=== PATIENT | male | born 1995 | race Caucasian/White ===

== ENCOUNTER 2020-12-31 21:22 | Emergency (ER) | payer OTHER, SELFPAY ==
--- NOTE | ~2020-12-31 | XR_ITS ---
EXAMINATION: XR chest 1V portable EXAM DATE: 12/31/2020 21:43 INDICATION: Cough, vomiting and anxiety. TECHNIQUE: Frontal and lateral projections of the chest obtained and reviewed. There is no prior cynthia dy for comparison. FINDINGS: The lungs are clear. There are no pleural effusions. The cardiomediastinal silhouette is within normal limits. There is no pneumothorax suspected. The bones and soft tissues are unremarkab le. IMPRESSION: No acute cardiopulmonary findings. Reviewed, dictated and finalized at location A.
[2020-12-31 21:27] VITALS: BP 150/92; PULSE 120; RESP 17; TEMP 37.2; O2SAT 98
--- NOTE | 2020-12-31 21:34 | PC.NURSE ---
Patient frequently stating I just don't like the sensations I am feeling. Its just very sensitive.
--- NOTE | 2020-12-31 21:35 | ECG_ITS ---
Measurements Intervals Lyman Rate: 107 P: 42 CA: 132 QRS: 29 QRSD: 95 T: 37 QT: 343 QTc: 459 Interpretive Statements SINUS TACHYCARDIA BASELINE ARTIFACT- I, II, III, AVR, AVL, AVF, V1-V6 ABNORMAL ECG Electronically Signed On 01-01-2021 6:51:43 CDT by Merrill Ulrich D.O.
--- NOTE | 2020-12-31 21:49 | ED.GENADULT ---
HPI - General Adult General Chief complaint: Unspecified <Yaz Ortega MD - Last Filed: 01/01/21 02:22> Stated complaint: awake 48 hours, anxiety <Yaz Ortega MD - Last Filed: 01/01/21 02:22> Time Seen by Provider: 12/31/20 21:24 <Yaz Ortega MD - Last Filed: 01/01/21 02:22> Source: patient and RN notes reviewed <Yaz Ortega MD - Last Filed: 01/01/21 02:22> Mode of arrival: EMS <Yaz Ortega MD - Last Filed: 01/01/21 02:22> Limitations: no limitations <Yaz Ortega MD - Last Filed: 01/01/21 02:22> History of Present Illness HPI narrative: This is a 25 year old male with history of anxiety, depression, polysubstance abuse who presents for anxiety, panic attack. EMS states patient has been binging on methamphetamine over the past severe days. He has been drinking alcohol in order to self medicate for his anxiety now. He states over the past 36 hours he has been drinking a bottle of dora. He is states he is paranoid and he states he does not want to be touched. He also states he has been suicidal for 3 weeks but there is no plan. He reports nausea, vomiting. He denies chest pain but he states his chest feels funny. He is also complaining about his hands cramping and tingling. <Yaz Ortega MD - Last Filed: 01/01/21 02:22> Related Data Allergies/adverse reactions: Allergies Allergy/AdvReac Type Severity Reaction Status Date / Time quetiapine [From Seroquel] Allergy Other Verified 12/31/20 21:33 trazodone Allergy Other Verified 12/31/20 21:33 diphenhydramine AdvReac Other Verified 12/31/20 21:33 [From Benadryl] <Yaz Ortega MD - Last Filed: 01/01/21 02:22> Review of Systems Review of Systems: All systems reviewed & are unremarkable except as noted in HPI and below <Yaz Ortega MD - Last Filed: 01/01/21 02:22> [facility] Past Medical History Medical History: Medical History (Updated 01/01/21 @ 02:22 by Yaz Ortega MD) Anxiety Depression Polysubstance abuse <Yaz Ortega MD - Last Filed: 01/01/21 02:22> Surgical History Surgical History: Surgical History (Updated 01/01/21 @ 02:16 by Yaz Ortega MD) No pertinent past surgical history <Yaz Ortega MD - Last Filed: 01/01/21 02:22> Social History Social History: Social History (Updated 01/01/21 @ 02:22 by Yaz Ortega MD) Alcohol intake: current Substance use type: marijuana and methamphetamine <Yaz Ortega MD - Last Filed: 01/01/21 02:22> Exam Narrative: Exam Narrative: GENERAL: patient extremely anxious and agitated. HEAD: Normocephalic, atraumatic EYES: PERRLA and EOMI, conjunctiva clear without discharge EARS: TM's clear bilaterally without erythema or dullness NOSE: Nares clear, no rhinorrhea or epistaxis THROAT:Mucous membranes moist, Oropharynx normal without erythema, exudate, peritonsillar swelling or fluctuance NECK: Supple, without lymphadenopathy or mass RESPIRATORY: No respiratory distress, Airway patent, Respirations non-labored, Clear to auscultation without rales, rhonchi or wheeze HEART: tachycardic , normal rhythm. No murmur heard. Normal peripheral pulses. ABDOMEN: Soft, nontender, nondistended, normal active bowel sounds. No masses. No rebound or guarding, No organomegaly. EXTREMITIES: No edema, normal strength with full range of motion. SKIN: Warm, dry, normal color without rash NEURO: Alert and oriented x3. CN 2-12 grossly intact. No focal deficits. . <Yaz Ortega MD - Last Filed: 01/01/21 02:22> Psych: Appearance: disheveled <Yaz Ortega MD - Last Filed: 01/01/21 02:22> Speech and movement: Normal speech and movement present and Clear speech present <Yaz Ortega MD - Last Filed: 01/01/21 02:22> Affect: Anxious affect present and Irritable affect present <Yaz Ortega MD - Last Filed: 01/01/21 02:22> Attitude: Guarded attititude/behavi
[2020-12-31] MEDS: LORazepam INJ (*CRX) 2 MG/ML VIAL 1 MG IV PUSH ×2 (21:52→23:06)
[2020-12-31] MEDS: SODIUM CHLORIDE 0.9% IV 1,000 ML 999 ML IV CONT ×3 (21:52→23:05)
[2020-12-31 22:02] LABS: Basophils Absolute Auto 0.1 K/mm3 (0.0-0.1); Basophils Percent Auto 0.5 % (0.2-1.2); Eosinophils Absolute Auto 0.1 K/mm3 (0-0.3); Hematocrit 47.9 % (42.0-52.0); Hemoglobin 16.8 g/dL (14.0-18.0); Immature Granulocyte Absolute 0.02 K/mm3 (0.00-0.031); Immature Granulocyte Percent A 0.2 % (0-0.5); Lymphocytes Absolute Auto 3.63 K/mm3 (0.9-3.2); Lymphocytes Percent Auto 35.9 % (18.3-44.2); Mean Corpuscular HGB Conc 35.1 g/dl (32-36); Mean Corpuscular Hemoglobin 30.4 pg (26-34); Mean Corpuscular Volume 86.6 fl (80-100); Mean Platelet Volume 8.9 fl (7.4-10.4); Monocytes Percent Auto 10.2 % (2.6-8.5); Neutrophils Absolute Auto 5.3 K/mm3 (1.3-6.7); Neutrophils Percent Auto 52.2 % (45.5-73.1); Platelet Count Result 287 k/mm3 (150-375); Red Blood Count 5.53 M/mm3 (4.6-6.20); Red Cell Distribution Width 12.8 % (11.5-14.5); White Blood Count 10.1 K/mm3 (4.5-10.0)
[2020-12-31 22:10] LABS: Prothrombin Time 14.1 Seconds (11.1-14.7)
[2020-12-31 22:11] LABS: Lactic Acid Reflex 3.5 mmol/L (0.7-2.1); Partial Thromboplastin Time 27.6 SECONDS (22.3-36.8)
[2020-12-31 22:12] LABS: Ethanol 96 mg/dL (<10)
[2020-12-31 22:14] LABS: D Dimer 0.27 ug/mL (<0.48)
[2020-12-31 22:18] LABS: Alanine Aminotransferase 25 U/L (4-50); Albumin Level 5.2 g/dL (3.5-5.1); Alkaline Phosphatase 90 U/L (38-126); Anion Gap 16 mmol/L (8-16); Aspartate Amino Transferase 69 U/L (17-59); Bilirubin,Total 1.2 mg/dL (0.2-1.3); Blood Urea Nitrogen 12 mg/dL (9-20); CRP < 0.5 mg/dL (<1.0); Calcium 10.5 mg/dL (8.4-10.2); Carbon Dioxide 19 mmol/L (22-30); Chloride 105 mmol/L (98-107); Creatine Kinase 595 U/L (55-170); Estimated Glomerular Filt Rate > 60; Glucose 81 mg/dL (75-110); Magnesium 1.9 mg/dL (1.6-2.3); Potassium 3.2 mmol/L (3.4-5.0); Sodium 140 mmol/L (137-145)
[2020-12-31 22:41] LABS: Add Urine Microscopic? YES; Appearance Urine Clear (Clear); Bilirubin Urine Negative (Negative); Blood Urine Negative (Negative); Color Urine Straw (Yellow); Glucose Urine UA Negative (Negative); Ketones Urine Trace mg/dL (Negative); Leukocyte Esterase Ur Negative LEU/UL (Negative); Nitrate Urine Negative (Negative); Protein Urine Negative (Negative); RBC Urine 0-2 /hpf (0-2); Urobilinogen Urine Negative mg/dL (<2.0)
[2020-12-31 22:43] LABS: Specific Grav Ur 1.004 (1.001-1.035)
[2020-12-31 22:57] LABS: Barbiturate Screen Urine Negative (Negative); Benzodiazepines Screen Urine Negative (Negative)
[2020-12-31 23:04] LABS: Cannabinoid Screen Urine Positive (Negative); Cocaine Screen Urine Negative (Negative); Methadone Screen Urine Negative (Negative); Opiate Screen Urine Negative (Negative); Phencyclidine Screen Urine Negative (Negative)
[2020-12-31 23:07] VITALS: BP 123/69; PULSE 109; RESP 16; O2SAT 100
[2020-12-31 23:21] LABS: Amphetamine Screen Urine Positive (Negative)
[2020-12-31 23:30] LABS: Troponin I < 0.012 ng/mL (0.000-0.034)
[2021-01-01 00:34] VITALS: BP 123/58; PULSE 106; RESP 16; O2SAT 94
[2021-01-01 00:45] LABS: Ethanol 43 mg/dL (<10)
[2021-01-01 00:59] LABS: Reflex Lactic Acid Yes or No Add Lactic
[2021-01-01 01:19] LABS: Lactic Acid 1.4 mmol/L (0.7-2.1)
--- NOTE | 2021-01-01 01:46 | PC.NURSE ---
Patient medically cleared at this time and can contact Crisis.
[2021-01-01 02:17] VITALS: BP 108/64; PULSE 103; RESP 21; O2SAT 95
--- NOTE | 2021-01-01 03:58 | PC.NURSE ---
Pt able to nod his head in response to staff questions. EDMD presented to bedside to speak with and update her on poc. All questions and concerns addressed.
[2021-01-01 04:32] VITALS: BP 110/86; PULSE 103; RESP 12; O2SAT 99
== END 2021-01-01 04:32 | disposition home or self-care (01) ==
PROVIDERS: General Practice; Emergency Provider Emergency Medicine
DX: F15.10 Other stimulant abuse, uncomplicated (principal); F10.10 Alcohol abuse, uncomplicated; Y90.4 Blood alcohol level of 80-99 mg/100 ml; E86.0 Dehydration; R00.0 Tachycardia, unspecified
CPT/HCPCS: 36415; 71045; 80053; 80307; 81001; 82550; 83605; 83735; 84443; 84484; 85025; 85380; 85610; 85730; 86140; 93005; 96361; 96374; 96376; 99284; J2060; J7030